=== PATIENT | female | born 1970 | race Caucasian/White ===

== ENCOUNTER → 2017-03-25 | Outpatient (CLI) | payer BC | LOC: RAD 10:49 | DX: R05 Cough (principal); R91.1 Solitary pulmonary nodule | CPT/HCPCS: 71020 ==

== ENCOUNTER → 2020-08-09 | Outpatient (CLI) | payer BC | LOC: KOH-I 08:55 | DX: R09.89 Other specified symptoms and signs involving the circulatory and respiratory systems (principal); R94.4 Abnormal results of kidney function studies | CPT/HCPCS: 70486; 76775 ==